=== PATIENT | female | born 1990 | race Caucasian/White ===

== ENCOUNTER 2016-09-02 13:41 | Inpatient (IN) | payer OTHER ==
[2016-09-02] VITALS (8 sets, daily range): BP systolic 115–126; BP diastolic 64–80; PULSE 98–113; RESP 16–20; TEMP 99.8–100.6; O2SAT 98–100
[~2016-09-02] VITALS: Ht 167.6 cm; Wt 77.2 kg
[~2016-09-02 13:41] MED LIST: ACYC-1 PO; AMBI10TA PO; AMOX500T2 PO
--- NOTE | 2016-09-02 14:09 | PD ---
HPI Chief Complaint: GI Complaint Time Seen by Provider: 13:59 Travel History International Travel<30 days: No Contact w/Intl Traveler<30days: No Traveled to known affect area: No History of Present Illness HPI This is a 25-year-old female who presents to the emergency department with 1 week of multiple symptoms. She reports one week ago her mother and ever since then she's had no appetite, hasn't been eating or drinking and is nauseous. She is also been having diffuse mild cramping abdominal discomfort. For 2 days she started to have a sore throat and headache and she feels very weak. Her family member noticed that she's developed a rash on the left side of her neck and she has a rash around her eyes but she's never had before. She does report subjective fevers and chills. She says she is otherwise healthy. She denies any abnormal vaginal discharge and has been sexually active with one partner in the past 6 months. She denies any history of IV drug use. PFSH Past Medical History Hx Anticoagulant Therapy: No Autoimmune Disease: No Blood Disorders: No Cancer: No Cardiovascular Problems: No Chemotherapy: No Cerebrovascular Accident: No Diabetes: No Diminished Hearing: No Endocrine: No Glaucoma: No Genitourinary: No Hepatitis: No Hiatal Hernia: No Hypertension: No Immune Disorder: No Medical other: Yes (MRSA IN PAST) Musculoskeletal: No Neurologic: No Psychiatric: No Reproductive: No Respiratory: No Integumentary: Yes (STATES HX OF MRSA INFESTIONS) Immunizations Current: Yes Sleep Apnea: Yes Thyroid Disease: No Tetanus Vaccination: < 5 Years Influenza Vaccination: Yes ?: Not LMP: ONE WEEK AGO : 0 Para: 0 Miscarriage: 0 : 0 Past Surgical History Abdominal Surgery: No Cardiac Surgery: No Ear Surgery: No Endocrine Surgery: No Eye Surgery: No Genitourinary Surgery: No Gynecologic Surgery: No Hysterectomy: No Oral Surgery: Yes (TONSILLECTOMY) Pacemaker: No Thoracic Surgery: No Tonsillectomy: Yes (12/14/09) Other Surgery: Yes (DEVIATED SEPTUM) Social History Alcohol Use: No Tobacco Use: No Substance Use: No Allergies-Medications (Allergen,Severity, Reaction): Coded Allergies: No Known Allergies (Verified , 09/02/16) Reported Meds & Prescriptions Reported Meds & Active Scripts Active Reported Zovirax 800 Mg Tab (Acyclovir) 800 Mg Tab 800 Mg PO BID Ambien (Zolpidem Tartrate) 10 Mg Tab 10 Mg PO HS Review of Systems Except as stated in HPI: all other systems reviewed are Neg Physical Exam Narrative GENERAL: Unwell-appearing. SKIN: Petechial rash over both eyelids. Patchy erythematous rash over the left neck. HEAD: Atraumatic. Normocephalic. EYES: Pupils equal and round. No injection or drainage. ENT: Moist mucous membranes NECK: Trachea midline. CARDIOVASCULAR: Regular rate and rhythm. No murmur appreciated. RESPIRATORY: Clear to auscultation. Breath sounds equal bilaterally. GASTROINTESTINAL: Abdomen soft, tender to palpation in the right upper and right lower quadrants with no rebound/guarding MUSCULOSKELETAL: No obvious deformities. NEUROLOGICAL: Awake and alert. No obvious cranial nerve deficits. Moving all extremities. PSYCHIATRIC: Appropriate mood and affect; insight and judgment normal. Data Data Last Documented VS Vital Signs Date Time Temp Pulse Resp B/P Pulse Ox O2 Delivery O2 Flow Rate FiO2 09/02/16 16:12 16 09/02/16 14:21 100 Room Air 09/02/16 13:49 98 126/80 09/02/16 13:44 99.8 Orders Electrocardiogram (09/02/16 14:01) Complete Blood Count With Diff (09/02/16 14:01) Comprehensive Metabolic Panel (09/02/16 14:01) Urinalysis - C+S If Indicated (09/02/16 14:01) Chest, Single Ap (09/02/16 14:01) Blood Glucose (09/02/16 14:01) Ecg Monitoring (09/02/16 14:01) Iv Access Insert/Monitor (09/02/16 14:01) Oximetry (09/02/16 14:01) Oxygen Administration (09/02/16 14:01) Group A Rapid Strep Screen (09/02/16 14:01) Lactic Acid (09/02/16 14:01) Sodium Chlor 0.9% 1000 Ml Inj (Ns 1000 M (09/02/16 14:15) Creatine Kinase (Cpk) (09/02/16 14:01) Ondansetron Inj (Zofran Inj) (09/02/16 14:15) Ketorolac Inj (Toradol Inj) (09/02/16 14:15) Prothrombin Time / Inr (Pt) (09/02/16 14:09) Act Partial Throm Time (Ptt) (09/02/16 14:09) Strep Culture (Group A) (09/02/16 14:15) Us Abdomen Gallbladder (09/02/16 ) Piperacil-Tazo 3.375 Gm Premix (Zosyn 3. (09/02/16 16:00) Influenzae A/B Antigen (09/02/16 15:52) Ct Abd/Pel W Iv Contrast(Rout) (09/02/16 ) Ed Urine Pregnancytest Poc (09/02/16 15:52) Labs Laboratory Tests Test 09/02/16 09/02/16 14:00 15:53 White Blood Count 17.7 TH/MM3 Red Blood Count 5.05 MIL/MM3 Hemoglobin 14.9 GM/DL Hematocrit 44.2 % Mean Corpuscular Volume 87.7 FL Mean Corpuscular Hemoglobin 29.4 PG Mean Corpuscular Hemoglobin 33.6 % Concent Red Cell Distribution Width 12.2 % Platelet Count 208 TH/MM3 Mean Platelet Volume 8.0 FL Neutrophils (%) (Auto) 95.7 % Lymphocytes (%) (Auto) 2.0 % Monocytes (%) (Auto) 1.9 % Eosinophils (%) (Auto) 0.1 % Basophils (%) (Auto) 0.3 % Neutrophils # (Auto) 16.9 TH/MM3 Lymphocytes # (Auto) 0.4 TH/MM3 Monocytes # (Auto) 0.3 TH/MM3 Eosinophils # (Auto) 0.0 TH/MM3 Basophils # (Auto) 0.1 TH/MM3 CBC Comment DIFF FINAL Differential Comment Prothrombin Time 12.0 SEC Prothromb Time International 1.1 RATIO Ratio Activated Partial 27.8 SEC Thromboplast Time Sodium Level 137 MEQ/L Potassium Level 3.6 MEQ/L Chloride Level 102 MEQ/L Carbon Dioxide Level 27.3 MEQ/L Anion Gap 8 MEQ/L Blood Urea Nitrogen 9 MG/DL Creatinine 0.95 MG/DL Estimat Glomerular Filtration 71 ML/MIN Rate Random Glucose 117 MG/DL Lactic Acid Level 1.5 mmol/L Calcium Level 9.4 MG/DL Total Bilirubin 2.4 MG/DL Aspartate Amino Transf 15 U/L (AST/SGOT) Alanine Aminotransferase 21 U/L (ALT/SGPT) Alkaline Phosphatase 63 U/L Total Creatine Kinase 103 U/L Total Protein 8.1 GM/DL Albumin 4.7 GM/DL Urine Collection Type CATH Urine Color YELLOW Urine Turbidity CLEAR Urine pH 7.0 Urine Specific [place] 1.009 Urine Protein NEG mg/dL Urine Glucose (UA) NEG mg/dL Urine Ketones 15 mg/dL Urine Occult Blood NEG Urine Nitrite NEG Urine Bilirubin NEG Urine Leukocyte Esterase TRACE Urine WBC 0-2 /hpf Urine Squamous Epithelial 0-5 /hpf Cells Microscopic Urinalysis Comment CULT NOT INDICATED MDM Medical Decision Making Medical Screen Exam Complete: Yes Emergency Medical Condition: Yes Interpretation(s) Temperature is 99.8, tachycardic Leukocytosis 95% neutrophils Total bilirubin is 2.4 Lactic acid is 1.5 CK is 103 Urinalysis is negative for infection Chest x-ray: No acute process Differential Diagnosis Viral syndrome, influenza, strep pharyngitis, pneumonia, urinary tract infection , dermatomyositis, cholecystitis, appendicitis Narrative Course This is a 25-year-old female who presents to the emergency department with multiple nonspecific symptoms including malaise, body aches, rash, abdominal pain and vomiting. She looks unwell and exam and is slightly tachycardic on arrival. She does have a leukocytosis of 17 with a normal lactic acid. She has a total bilirubin of 2.4 which may reflect Gilbert's syndrome, but in the setting of abdominal pain and vomiting at think it's reasonable to obtain an ultrasound of the right upper quadrant to evaluate the gallbladder. CT abdomen and pelvis will also be obtained to rule out appendicitis. Patient was given a dose of IV Zosyn. I think all the patient's symptoms can be explained by a viral syndrome. I think if both of these imaging studies are reassuring patient 's symptoms can be attributed to a viral illness and I think she can be discharged home if her clinical appearance is improved after 2 L of IV fluids that she is otherwise young and healthy. Martine Ruiz MD September 02, 2016 14:09
[2016-09-02] MEDS ORDERED: KETOROLAC TROMETHAMINE 30 MG/ML (IVP) VIAL IV PUSH ONE (14:15)
[2016-09-02] MEDS ORDERED: ONDANSETRON HCL 4 MG/2 ML VIAL IV PUSH ONE (14:15)
[2016-09-02] MEDS ORDERED: SODIUM CHLOR 0.9% 1000 ML INJ 1,000 ML IV ONE ×2 (14:15→17:45)
[2016-09-02 14:21] LABS: AUTOMATED NEUTROPHIL # 16.9 TH/MM3 (1.8-7.7); BASOPHIL # 0.1 TH/MM3 (0-0.2); BASOPHIL % 0.3 % (0.0-2.0); EOSINOPHIL % 0.1 % (0.0-4.0); HEMATOCRIT 44.2 % (35.0-46.0); LYMPHOCYTE # 0.4 TH/MM3 (1.0-4.8); MEAN CELL VOLUME 87.7 FL (80.0-100.0); MEAN CORPUSCULAR HEMOGLOBIN 29.4 PG (27.0-34.0); MEAN CORPUSCULAR HGB CONC 33.6 % (32.0-36.0); MONO % 1.9 % (0.0-8.0); NEUT % 95.7 % (16.0-70.0); PLATELET COUNT 208 TH/MM3 (150-450); RED BLOOD COUNT 5.05 MIL/MM3 (4.00-5.30); RED CELL DISTRIBUTION WIDTH 12.2 % (11.6-17.2); WHITE BLOOD COUNT 17.7 TH/MM3 (4.0-11.0)
[2016-09-02 14:22] LABS: HEMO FLAGS DIFF FINAL
[2016-09-02 14:26] LABS: CHLORIDE 102 MEQ/L (98-107); POTASSIUM 3.6 MEQ/L (3.5-5.1); SODIUM (NA) 137 MEQ/L (136-145)
[2016-09-02 14:30] LABS: ANION GAP 8 MEQ/L (5-15); BICARBONATE 27.3 MEQ/L (21.0-32.0)
[2016-09-02 14:31] LABS: BLOOD UREA NITROGEN 9 MG/DL (7-18)
[2016-09-02 14:32] LABS: APTT (PATIENT) 27.8 SEC (24.3-30.1); INTERNATIONAL NORMALIZED RATIO 1.1 RATIO
[2016-09-02 14:34] LABS: ALT (GPT) 21 U/L (10-53); AST (GOT) 15 U/L (15-37); GLOMERULAR FILTRATION RATE 71 ML/MIN (>89)
[2016-09-02 14:35] LABS: TOTAL BILIRUBIN ADULT 2.4 MG/DL (0.2-1.0)
[2016-09-02 14:36] LABS: CREATINE KINASE 103 U/L (26-192)
[2016-09-02 14:37] LABS: ALKALINE PHOSPHATASE 63 U/L (45-117)
--- NOTE | 2016-09-02 15:14 | RADHPO ---
EXAM DATE/TIME: 09/02/2016 14:23 [facility] COMPARISON: No previous studies available for comparison. INDICATIONS : Short of breath and flu like symptoms MEDICAL HISTORY : None. SURGICAL HISTORY : None. ENCOUNTER: Initial ACUITY: 4 - 6 days PAIN SCORE: 4/10 LOCATION: Bilateral chest FINDINGS: A single view of the chest demonstrates the lungs to be symmetrically aerated without evidence of mas s, infiltrate or effusion. The cardiomediastinal contours are unremarkable. Osseous structures are intact. CONCLUSION: No acute disease. Terrell Ocampo MD on September 02, 2016 at 15:12 Board Certified Radiologist. This report was verified electronically.
[2016-09-02] MEDS ORDERED: PIPERACIL-TAZO 3.375 GM PREMIX 50 ML IV ONE (16:00)
[2016-09-02 16:02] LABS: BLOOD, URINE NEG (NEG); GLUCOSE,URINE NEG (NEG); KETONE, URINE 15 mg/dL (NEG); NITRITE,URINE NEG (NEG)
[2016-09-02 16:11] LABS: METHOD OF COLLECTION CATH; URINE COLOR YELLOW (YELLW/STRAW)
[2016-09-02 16:12] LABS: COMMENT (UR) CULT NOT INDICATED; CULTURE IF INDICATED CULT NOT INDICATED; SQUAMOUS EPITHELIAL CELL URINE 0-5 /hpf (0-5); WBC, URINE 0-2 /hpf (0-5)
--- NOTE | 2016-09-02 17:01 | RADHPO ---
EXAM DATE/TIME: 09/02/2016 15:37 [facility] COMPARISON: No previous studies available for comparison. INDICATIONS : Right upper quadrant pain. MEDICAL HISTORY : Methicillin-resistant Staphylococcus aureus. Sleep apnea. UTI. SURGICAL HISTORY : Tonsillectomy. Deviated septum repair. ENCOUNTER: Initial ACUITY: 1 day PAIN SCORE: 9/10 LOCATION: Right upper quadrant MEASUREMENTS: LIVER: 15.6 cm length COMMON DUCT: 2 mm RIGHT KIDNEY: 10.9 x 5.2 x 3.7 cm FINDINGS: LIVER: Normal echotexture without focal lesion or ductal dilatation. COMMON DUCT: No intraluminal mass or stone visualized. GALLBLADDER: Contains no stones, demonstrates no wall thickening or pericholecystic fluid. PANCREAS: The visualized portions are within normal limits. RIGHT KIDNEY: No evidence of hydronephrosis, stone, or mass. CONCLUSION: Normal examination. Terrell Ocampo MD on September 02, 2016 at 16:59 Board Certified Radiologist. This report was verified electronically.
[2016-09-02] MEDS ORDERED: IOHEXOL 350 MG/ML 10 ML VIAL (for RAD DIAG) IV ONE (17:13)
--- NOTE | 2016-09-02 17:27 | RADHPO ---
EXAM DATE/TIME: 09/02/2016 17:02 [facility] COMPARISON: No previous studies available for comparison. INDICATIONS : Non specific abdominal pain with nausea and vomiting. IV CONTRAST: 90 cc Omnipaque 350 (iohexol) IV ORAL CONTRAST: No oral contrast ingested. RADIATION DOSE: 8.45 CTDIvol (mGy) MEDICAL HISTORY : None SURGICAL HISTORY : None. ENCOUNTER: Initial ACUITY: 1 week PAIN SCALE: 2/10 LOCATION: abdomen TECHNIQUE: Volumetric scanning of the abdomen and pelvis was performed. Using automated exposure control and ad justment of the mA and/or kV according to patient size, radiation dose was kept as low as reasonably achievable to obtain optimal diagnostic quality images. FINDINGS: LOWER LUNGS: The visualized lower lungs are clear. LIVER: Homogeneous density without lesion. There is no dilation of the biliary tree. No calcified gallston es. SPLEEN: Normal size without lesion. PANCREAS: Within normal limits. KIDNEYS: Normal in size and shape. There is no mass, stone or hydronephrosis. ADRENAL GLANDS: Within normal limits. VASCULAR: There is no aortic aneurysm. BOWEL/MESENTERY: No oral contrast was given limiting sensitivity. There are multiple loops of nondilated air-containin g small bowel several air-fluid levels. There is no free air. There is a small amount of fluid in the cul-de-sac. ABDOMINAL WALL: Within normal limits. RETROPERITONEUM: There is no lymphadenopathy. BLADDER: No wall thickening or mass. REPRODUCTIVE: Within normal limits. INGUINAL: There is no lymphadenopathy or hernia. MUSCULOSKELETAL: Within normal limits for patient age. CONCLUSION: 1. Mildly nonspecific, nonobstructive bowel gas pattern which could represent a mild gastroenteritis and/or ileus. 2. Small amount of free fluid in the cul-de-sac which is a nonspecific finding in a female patient of this age and may be physiologic. Ildefonso Mata MD on September 02, 2016 at 17:20 Board Certified Radiologist. This report was verified electronically.
[2016-09-02] MEDS ORDERED: METOCLOPRAMIDE HCL 10 MG/2 ML VIAL IV PUSH ONE (17:45)
--- NOTE | 2016-09-02 17:58 | PD ---
Data Data Last Documented VS Vital Signs Date Time Temp Pulse Resp B/P Pulse Ox O2 Delivery O2 Flow Rate FiO2 09/02/16 16:12 16 09/02/16 14:21 100 Room Air 09/02/16 13:49 98 126/80 09/02/16 13:44 99.8 Orders Electrocardiogram (09/02/16 14:01) Complete Blood Count With Diff (09/02/16 14:01) Comprehensive Metabolic Panel (09/02/16 14:01) Urinalysis - C+S If Indicated (09/02/16 14:01) Chest, Single Ap (09/02/16 14:01) Blood Glucose (09/02/16 14:01) Ecg Monitoring (09/02/16 14:01) Iv Access Insert/Monitor (09/02/16 14:01) Oximetry (09/02/16 14:01) Oxygen Administration (09/02/16 14:01) Group A Rapid Strep Screen (09/02/16 14:01) Lactic Acid (09/02/16 14:01) Sodium Chlor 0.9% 1000 Ml Inj (Ns 1000 M (09/02/16 14:15) Creatine Kinase (Cpk) (09/02/16 14:01) Ondansetron Inj (Zofran Inj) (09/02/16 14:15) Ketorolac Inj (Toradol Inj) (09/02/16 14:15) Prothrombin Time / Inr (Pt) (09/02/16 14:09) Act Partial Throm Time (Ptt) (09/02/16 14:09) Strep Culture (Group A) (09/02/16 14:15) Us Abdomen Gallbladder (09/02/16 ) Piperacil-Tazo 3.375 Gm Premix (Zosyn 3. (09/02/16 16:00) Influenzae A/B Antigen (09/02/16 15:52) Ct Abd/Pel W Iv Contrast(Rout) (09/02/16 ) Ed Urine Pregnancytest Poc (09/02/16 15:52) Blood Culture (09/02/16 16:34) Iohexol 350 Inj (Omnipaque 350 Inj) (09/02/16 17:13) Metoclopramide Inj (Reglan Inj) (09/02/16 17:45) Sodium Chlor 0.9% 1000 Ml Inj (Ns 1000 M (09/02/16 17:45) Admit Order (Ed Use Only) (09/02/16 17:51) Admit To Inpatient (09/02/16 ) Vital Signs (Adult) Q4H (09/02/16 17:52) Activity Oob Ad Nhung (09/02/16 17:52) Small Battery Plate Assembler / Telemetry .CONTINUOUS (09/02/16 17:52) Diet Regular Basic (09/02/16 Dinner) Sodium Chlor 0.9% 1000 Ml Inj (Ns 1000 M (09/02/16 17:52) Sodium Chloride 0.9% Flush (Ns Flush) (09/02/16 18:00) Sodium Chloride 0.9% Flush (Ns Flush) (09/02/16 21:00) Ondansetron Inj (Zofran Inj) (09/02/16 18:00) Comprehensive Metabolic Panel (09/03/16 06:00) Complete Blood Count With Diff (09/03/16 06:00) Enoxaparin Inj (Lovenox Inj) (09/02/16 18:00) Naloxone Inj (Narcan Inj) (09/02/16 18:00) Inpatient Certification (09/02/16 ) Labs Laboratory Tests Test 09/02/16 09/02/16 14:00 15:53 White Blood Count 17.7 TH/MM3 Red Blood Count 5.05 MIL/MM3 Hemoglobin 14.9 GM/DL Hematocrit 44.2 % Mean Corpuscular Volume 87.7 FL Mean Corpuscular Hemoglobin 29.4 PG Mean Corpuscular Hemoglobin 33.6 % Concent Red Cell Distribution Width 12.2 % Platelet Count 208 TH/MM3 Mean Platelet Volume 8.0 FL Neutrophils (%) (Auto) 95.7 % Lymphocytes (%) (Auto) 2.0 % Monocytes (%) (Auto) 1.9 % Eosinophils (%) (Auto) 0.1 % Basophils (%) (Auto) 0.3 % Neutrophils # (Auto) 16.9 TH/MM3 Lymphocytes # (Auto) 0.4 TH/MM3 Monocytes # (Auto) 0.3 TH/MM3 Eosinophils # (Auto) 0.0 TH/MM3 Basophils # (Auto) 0.1 TH/MM3 CBC Comment DIFF FINAL Differential Comment Prothrombin Time 12.0 SEC Prothromb Time International 1.1 RATIO Ratio Activated Partial 27.8 SEC Thromboplast Time Sodium Level 137 MEQ/L Potassium Level 3.6 MEQ/L Chloride Level 102 MEQ/L Carbon Dioxide Level 27.3 MEQ/L Anion Gap 8 MEQ/L Blood Urea Nitrogen 9 MG/DL Creatinine 0.95 MG/DL Estimat Glomerular Filtration 71 ML/MIN Rate Random Glucose 117 MG/DL Lactic Acid Level 1.5 mmol/L Calcium Level 9.4 MG/DL Total Bilirubin 2.4 MG/DL Aspartate Amino Transf 15 U/L (AST/SGOT) Alanine Aminotransferase 21 U/L (ALT/SGPT) Alkaline Phosphatase 63 U/L Total Creatine Kinase 103 U/L Total Protein 8.1 GM/DL Albumin 4.7 GM/DL Urine Collection Type CATH Urine Color YELLOW Urine Turbidity CLEAR Urine pH 7.0 Urine Specific [place] 1.009 Urine Protein NEG mg/dL Urine Glucose (UA) NEG mg/dL Urine Ketones 15 mg/dL Urine Occult Blood NEG Urine Nitrite NEG Urine Bilirubin NEG Urine Leukocyte Esterase TRACE Urine WBC 0-2 /hpf Urine Squamous Epithelial 0-5 /hpf Cells Microscopic Urinalysis Comment CULT NOT INDICATED MDM Supervised Visit with MIRIAM: No Narrative Course Patient was initially evaluated by the previous provider and signed out to me at the beginning my shift pending CT abdomen pelvis, right upper quadrant ultrasound, and disposition. See her note for further details. Briefly this is a 25-year-old female who presents with multiple complaints after her mother this past week. Patient has been having diffuse body aches, headaches, sore throat, fever, nausea, and vomiting with little appetite. She went to her primary care physician today who started her on azithromycin for pharyngitis. The patient has also noted a rash on her right face and right neck. On physical exam the patient is sleeping comfortably. Mucous membranes are dry. She has a petechial rash on the right side of her face/eyelids as well as a blanching/erythematous rash on her right neck. No nuchal rigidity on exam. Abdomen with moderate diffuse tenderness without peritoneal signs. Initial vital signs show heart rate 113, blood pressure 124/76, pulse ox 99% on room air, oral temp of 99.8F. CBC is remarkable for WBC 17.7 with 95% neutrophils. CMP is remarkable for total bili 2.4, otherwise unremarkable. Lactic acid is 1.5. UA shows 15 ketones, trace site esterase, otherwise unremarkable, not suggestive of UTI. Group A strep is negative. Chest x-ray: No acute disease. CT abdomen pelvis: CONCLUSION: 1. Mildly nonspecific, nonobstructive bowel gas pattern which could represent a mild gastroenteritis and/or ileus. 2. Small amount of free fluid in the cul-de-sac which is a nonspecific finding in a female patient of this age and may be physiologic. Right upper quadrant ultrasound: CONCLUSION: Normal examination. On reassessment the patient is continuing to have frontal headache which she describes as pressure, and has been going on for last 5 days. There is no nuchal rigidity on exam. She continues to have abdominal pain and discomfort. She does have some mild to moderate periumbilical tenderness without peritoneal signs. Patient is likely suffering from a viral illness, however given ongoing symptoms, she will be admitted for overnight observation for further treatment and evaluation. Case discussed with hospitalist Dr. Wei who will admit the patient to his service. Diagnosis Primary Impression: Leukocytosis Qualified Code: D72.829 - Leukocytosis, unspecified type Additional Impressions: Malaise Rash Abdominal pain Qualified Code: R10.9 - Abdominal pain, unspecified location Admitting Information Admitting Physician Requests: Observation Marcus Taylor MD September 02, 2016 17:58
--- NOTE | 2016-09-02 17:59 | HHI.HP ---
[facility] Service [facility] Primary Care Physician No Primary Care Physician Admission Diagnosis leukocytosis, vomiting, general malaise, rash Diagnoses: (1) Malaise Diagnosis: Principal (2) Rash Diagnosis: Principal (3) Abdominal pain Diagnosis: Principal (4) Enteritis Diagnosis: Principal (5) Headache Diagnosis: Principal (6) Hyperbilirubinemia Diagnosis: Principal (7) Leukocytosis Diagnosis: Principal (8) Tachycardia Diagnosis: Principal (9) Sepsis Diagnosis: Principal Travel History International Travel<30 Days: No Contact w/Intl Traveler <30 Da: No Traveled to Known Affected Are: No Sepsis Criteria SIRS Criteria (2 or more): Heart rate over 90, WBC > 30201, < 4000 or > 10% bands Sepsis Criteria (SIRS+source): Infect source susp/known History of Present Illness Mrs. Tran is a 25-year-old female. She came into the emergency room secondary to hyperemesis and malaise. She has been dealing with headache and sore throat for about a week. Recently she has started throwing up and having abdominal pain. Imaging shows enteritis. She has hyperbilirubinemia. The presence of tachycardia, fever, leukocytosis, and an infectious source of enteritis meets sepsis criteria. An early secondary bacterial infection is suspected which may have been preceded by a viral syndrome. She also reports petechial rashes above her eyes which was present earlier at her neck. She claims that she has not been able to eat or drink well for about 7 days. Her mother recently and she's been under a lot of stress. Her mother of complications of lung cancer (pneumonia) and her grandfather also had lung cancer. No other positive family history. No other complaints today. Review of Systems Constitutional: COMPLAINS OF: Fatigue, Fever, Chills Endocrine: COMPLAINS OF: Heat/cold intolerance Eyes: DENIES: Blurred vision, Diplopia Ears, nose, mouth, throat: COMPLAINS OF: Nasal discharge, DENIES: Hearing loss , Vertigo Respiratory: COMPLAINS OF: Cough, DENIES: Wheezing, Shortness of breath Cardiovascular: DENIES: Chest pain, Palpitations, Syncope Gastrointestinal: COMPLAINS OF: Abdominal pain, DENIES: Black stools, Bloody stools Genitourinary: DENIES: Abnormal vaginal bleeding Musculoskeletal: COMPLAINS OF: Joint pain, Muscle aches Integumentary: DENIES: Abnormal pigmentation Hematologic/lymphatic: DENIES: Bruising Immunologic/allergic: DENIES: Eczema Neurologic: COMPLAINS OF: Headache, DENIES: Abnormal gait, Paresthesias, Seizures Psychiatric: DENIES: Anxiety, Confusion Past Family Social History Past Medical History None reported Past Surgical History None Reported Medications Reported Meds & Active Scripts Active Reported Zovirax 800 Mg Tab (Acyclovir) 800 Mg Tab 800 Mg PO BID Ambien (Zolpidem Tartrate) 10 Mg Tab 10 Mg PO HS Allergies: Coded Allergies: No Known Allergies (Verified , 09/02/16) Active Ordered Medications Administered Medications Medications (Trade) Dose Ordered Sig/Janay Route PRN Reason Start Time Stop Time Status Last Admin Dose Admin Sodium Chloride (NS 1000 ml Inj) 1,000 ml @ 999 mls/hr BOLUS ONCE IV 09/02/16 17:45 09/02/16 18:45 09/02/16 18:24 Family History Lung cancer and mother Lung cancer in grandfather Social History Patient denies smoking, alcohol abuse, or drug abuse. Physical Exam Vital Signs Vital Signs Date Time Temp Pulse Resp B/P Pulse Ox O2 Delivery O2 Flow Rate FiO2 09/02/16 16:12 16 09/02/16 14:21 100 Room Air 09/02/16 14:21 100 Room Air 09/02/16 13:49 98 20 126/80 99 Room Air 09/02/16 13:44 99.8 113 16 124/76 99 Physical Exam GENERAL: NAD, A&Ox3 SKIN: Warm and dry. Petechial rash on upper eyelids. HEAD: Normocephalic. Pharyngitis. EYES: No scleral icterus. No injection or drainage. NECK: Supple, trachea midline. No JVD or lymphadenopathy. CARDIOVASCULAR: Regular rate and rhythm without murmurs, gallops, or rubs. RESPIRATORY: Breath sounds equal bilaterally. No accessory muscle use. GASTROINTESTINAL: Abdomen soft. Nondistended. Global tenderness with most tenderness of the right lower quadrant. MUSCULOSKELETAL: No cyanosis, or edema. Laboratory Laboratory Tests Test 09/02/16 09/02/16 14:00 15:53 White Blood Count 17.7 Red Blood Count 5.05 Hemoglobin 14.9 Hematocrit 44.2 Mean Corpuscular Volume 87.7 Mean Corpuscular Hemoglobin 29.4 Mean Corpuscular Hemoglobin 33.6 Concent Red Cell Distribution Width 12.2 Platelet Count 208 Mean Platelet Volume 8.0 Neutrophils (%) (Auto) 95.7 Lymphocytes (%) (Auto) 2.0 Monocytes (%) (Auto) 1.9 Eosinophils (%) (Auto) 0.1 Basophils (%) (Auto) 0.3 Neutrophils # (Auto) 16.9 Lymphocytes # (Auto) 0.4 Monocytes # (Auto) 0.3 Eosinophils # (Auto) 0.0 Basophils # (Auto) 0.1 CBC Comment DIFF FINAL Differential Comment Prothrombin Time 12.0 Prothromb Time International 1.1 Ratio Activated Partial 27.8 Thromboplast Time Sodium Level 137 Potassium Level 3.6 Chloride Level 102 Carbon Dioxide Level 27.3 Anion Gap 8 Blood Urea Nitrogen 9 Creatinine 0.95 Estimat Glomerular Filtration 71 Rate Random Glucose 117 Lactic Acid Level 1.5 Calcium Level 9.4 Total Bilirubin 2.4 Aspartate Amino Transf 15 (AST/SGOT) Alanine Aminotransferase 21 (ALT/SGPT) Alkaline Phosphatase 63 Total Creatine Kinase 103 Total Protein 8.1 Albumin 4.7 Urine Collection Type CATH Urine Color YELLOW Urine Turbidity CLEAR Urine pH 7.0 Urine Specific [place] 1.009 Urine Protein NEG Urine Glucose (UA) NEG Urine Ketones 15 Urine Occult Blood NEG Urine Nitrite NEG Urine Bilirubin NEG Urine Leukocyte Esterase TRACE Urine WBC 0-2 Urine Squamous Epithelial 0-5 Cells Microscopic Urinalysis Comment CULT NOT INDICATED Date/Time Procedure Status Source Growth 09/02/16 16:15 Influenza Types A,B Antigen (CHARLES) - Final Complete Nasal Washing NEGATIVE FOR FLU A AND B ANTIGEN.... 09/02/16 14:15 Group A Streptococcus Screen (CHARLES) - Final Complete Throat 09/02/16 14:15 Group A Streptococcus Screen Received Throat Pending 09/02/16 14:08 Aerobic Blood Culture Received Blood Peripheral Pending 09/02/16 14:08 Anaerobic Blood Culture Received Blood Peripheral Pending Result Diagram: 09/02/16 1400 09/02/16 1400 Septic Shock Reassessment Heart: Regular rate and rhythm Lungs: Clear Skin: Warm Peripheral Pulses: Bounding Right Radial Bounding Left Radial Capillary Refill: Brisk Assessment and Plan Problem List: (1) Enteritis ICD Code: K52.9 Status: Acute (2) Headache ICD Code: R51 Status: Acute (3) Hyperbilirubinemia ICD Code: E80.6 Status: Acute (4) Leukocytosis ICD Code: D72.829 Status: Acute (5) Tachycardia ICD Code: R00.0 Status: Acute (6) Sepsis ICD Code: A41.9 Status: Acute Assessment and Plan Assessment and plan 25-year-old female with enteritis who is meeting sepsis criteria. Enteritis Sepsis Hyperbilirubinemia Hyperemesis Evaluate for C. difficile Follow on telemetry Follow bilirubin level Flagyl (change to by mouth his C. difficile is present) Levaquin IV hydration Headache When necessary IV morphine Bilateral eyelid petechia May represent systemic inflammation May represent progressive vomiting Follow for now Treatment for infection as above Global weakness Likely secondary to infection Treatment infection as above next Acute grief Supportive care DVT prophylaxis Lovenox Physician Certification 2 Midnight Certification Type: Admission for Inpatient Services Order for Inpatient Services The services are ordered in accordance with Medicare regulations or non- Medicare payer requirements, as applicable. In the case of services not specified as inpatient-only, they are appropriately provided as inpatient services in accordance with the 2-midnight benchmark. Estimated LOS (days): 2 days is the estimated time the patient will need to remain in the hospital, assuming treatment plan goals are met and no additional complications. Post-Hospital Plan: Home Problem Qualifiers (1) Abdominal pain: Qualified Code: R10.9 - Abdominal pain, unspecified location Flip Wei MD September 02, 2016 5:59 pm
[2016-09-02] MEDS ORDERED: SODIUM CHLORIDE 0.9% FLUSH 10 ML FLUSH IV FLUSH PRN (18:00)
[2016-09-02] MEDS ORDERED: ONDANSETRON HCL 4 MG/2 ML VIAL IVP PRN (18:00)
[2016-09-02] MEDS ORDERED: NALOXONE HCL 0.4 MG/ML AMP IV PRN (18:00)
[2016-09-02] MEDS: SODIUM CHLOR 0.9% 1000 ML INJ 1,000 ML IV SCH (19:25)
[2016-09-02] MEDS ORDERED: ENOXAPARIN SODIUM 40 MG/0.4 ML SYRINGE SQ SCH (20:00)
[2016-09-02] MEDS: SODIUM CHLORIDE 0.9% FLUSH 10 ML FLUSH IV FLUSH SCH (21:40)
[2016-09-02] MEDS ORDERED: ACETAMINOPHEN/HYDROcodone 325 MG/5 MG TAB PO ONE (22:45)
[2016-09-02] MEDS ORDERED: ACETAMINOPHEN 500 MG CPLT PO PRN (22:45)
[2016-09-03] VITALS: BP 109/58; PULSE 90; RESP 18; TEMP 99.6; O2SAT 99
[2016-09-03] MEDS: SODIUM CHLOR 0.9% 1000 ML INJ 1,000 ML IV SCH ×2 (02:19→09:27)
[2016-09-03 04:00] VITALS: BP 105/58; PULSE 90; RESP 18; TEMP 99.1; O2SAT 98
[2016-09-03 07:25] LABS: AUTOMATED NEUTROPHIL # 10.4 TH/MM3 (1.8-7.7); BASOPHIL % 0.2 % (0.0-2.0); EOSINOPHIL # 0.1 TH/MM3 (0-0.4); EOSINOPHIL % 0.8 % (0.0-4.0); HEMATOCRIT 36.9 % (35.0-46.0); LYMPH % 7.4 % (9.0-44.0); LYMPHOCYTE # 0.9 TH/MM3 (1.0-4.8); MEAN CELL VOLUME 89.7 FL (80.0-100.0); MEAN CORPUSCULAR HGB CONC 33.5 % (32.0-36.0); MONO % 6.1 % (0.0-8.0); NEUT % 85.5 % (16.0-70.0); PLATELET COUNT 176 TH/MM3 (150-450); RED BLOOD COUNT 4.11 MIL/MM3 (4.00-5.30); RED CELL DISTRIBUTION WIDTH 12.3 % (11.6-17.2); WHITE BLOOD COUNT 12.1 TH/MM3 (4.0-11.0)
[2016-09-03 07:29] LABS: CHLORIDE 108 MEQ/L (98-107); POTASSIUM 3.7 MEQ/L (3.5-5.1); SODIUM (NA) 142 MEQ/L (136-145)
[2016-09-03 07:31] LABS: HEMO FLAGS DIFF FINAL
[2016-09-03 07:43] LABS: ALKALINE PHOSPHATASE 44 U/L (45-117); ALT (GPT) 15 U/L (10-53); ANION GAP 8 MEQ/L (5-15); AST (GOT) 11 U/L (15-37); BICARBONATE 25.6 MEQ/L (21.0-32.0); BLOOD UREA NITROGEN 5 MG/DL (7-18); GLOMERULAR FILTRATION RATE 101 ML/MIN (>89)
[2016-09-03 08:00] VITALS: BP 97/89; PULSE 84; RESP 16; TEMP 97.8; O2SAT 99
[2016-09-03] MEDS: SODIUM CHLORIDE 0.9% FLUSH 10 ML FLUSH IV FLUSH SCH (09:00)
[2016-09-03] MEDS ORDERED: METR-1 PO (10:12)
[2016-09-03] MEDS ORDERED: LACT PO (10:12)
[2016-09-03] MEDS ORDERED: CIPR-9 PO (10:12)
[2016-09-03] MEDS ORDERED: CIPROFLOXACIN 500 MG TAB PO SCH (10:15)
[2016-09-03] MEDS ORDERED: PIPERACIL-TAZO 3.375 GM PREMIX 50 ML IV SCH (10:15)
--- NOTE | 2016-09-03 12:42 | HHI.DS ---
Discharge Summary Admission Date September 02, 2016 at 17:54 Discharge Date: September 03, 2016 Admitting Diagnosis leukocytosis, vomiting, general malaise, rash (1) Malaise ICD Code: R53.81 Diagnosis: Principal (2) Rash ICD Code: R21 Diagnosis: Principal (3) Abdominal pain ICD Code: R10.9 Diagnosis: Principal (4) Enteritis ICD Code: K52.9 Diagnosis: Principal (5) Headache ICD Code: R51 Diagnosis: Principal (6) Hyperbilirubinemia ICD Code: E80.6 Diagnosis: Principal (7) Leukocytosis ICD Code: D72.829 Diagnosis: Principal (8) Tachycardia ICD Code: R00.0 Diagnosis: Principal (9) Sepsis ICD Code: A41.9 Diagnosis: Principal Procedures None Brief History - From Admission Mrs. Tran is a 25-year-old female. She came into the emergency room secondary to hyperemesis and malaise. She has been dealing with headache and sore throat for about a week. Recently she has started throwing up and having abdominal pain. Imaging shows enteritis. She has hyperbilirubinemia. The presence of tachycardia, fever, leukocytosis, and an infectious source of enteritis meets sepsis criteria. An early secondary bacterial infection is suspected which may have been preceded by a viral syndrome. She also reports petechial rashes above her eyes which was present earlier at her neck. She claims that she has not been able to eat or drink well for about 7 days. Her mother recently and she's been under a lot of stress. Her mother of complications of lung cancer (pneumonia) and her grandfather also had lung cancer. No other positive family history. No other complaints today. CBC/BMP: 09/03/16 0545 09/03/16 0545 Significant Findings Laboratory Tests Test 09/02/16 09/02/16 09/03/16 14:00 15:53 05:45 White Blood Count 17.7 TH/MM3 12.1 TH/MM3 (4.0-11.0) (4.0-11.0) Neutrophils (%) (Auto) 95.7 % 85.5 % (16.0-70.0) (16.0-70.0) Lymphocytes (%) (Auto) 2.0 % 7.4 % (9.0-44.0) (9.0-44.0) Neutrophils # (Auto) 16.9 TH/MM3 10.4 TH/MM3 (1.8-7.7) (1.8-7.7) Lymphocytes # (Auto) 0.4 TH/MM3 0.9 TH/MM3 (1.0-4.8) (1.0-4.8) Prothrombin Time 12.0 SEC (9.8-11.6) Estimat Glomerular Filtration 71 ML/MIN (>89) Rate Random Glucose 117 MG/DL (74-106) Total Bilirubin 2.4 MG/DL (0.2-1.0) Urine Ketones 15 mg/dL (NEG) Urine Leukocyte Esterase TRACE (NEG) Chloride Level 108 MEQ/L (98-107) Blood Urea Nitrogen 5 MG/DL (7-18) Calcium Level 8.0 MG/DL (8.5-10.1) Aspartate Amino Transf 11 U/L (15-37) (AST/SGOT) Alkaline Phosphatase 44 U/L (45-117) Total Protein 5.9 GM/DL (6.4-8.2) Albumin 3.1 GM/DL (3.4-5.0) Imaging Last Impressions Chest X-Ray 09/02/16 1401 Signed Impressions: Service Date/Time: Friday, September 02, 2016 14:23 - CONCLUSION: No acute disease. Terrell Ocampo MD Gall Bladder Ultrasound 09/02/16 0000 Signed Impressions: Service Date/Time: Friday, September 02, 2016 15:37 - CONCLUSION: Normal examination. Terrell Ocampo MD Abdomen/Pelvis CT 09/02/16 0000 Signed Impressions: Service Date/Time: Friday, September 02, 2016 17:02 - CONCLUSION: 1. Mildly nonspecific, nonobstructive bowel gas pattern which could represent a mild gastroenteritis and/or ileus. 2. Small amount of free fluid in the cul-de-sac which is a nonspecific finding in a female patient of this age and may be physiologic. Ildefonso Mata MD Hospital Course Mrs. Tran is a 25 year old female. She was admitted to the hospital secondary to enteritis with evidence of sepsis. Zosyn was provided and today she is changed to Flagyl and ciprofloxacin. Overnight she has had resolution of her fevers, cessation of her tachycardia, a rapidly declining white blood cell count, and resolution of her hyperbilirubinemia. Nausea and vomiting are no longer present. She is tolerating by mouth intake. She requests discharge to home. As she is no longer septic and improving rapidly on antibiotics she is medically stable for discharge with continuation of oral antibiotic for 5 days. Will be treated with ciprofloxacin and Flagyl as an outpatient. Pt Condition on Discharge: Stable Discharge Disposition: Discharge Home Discharge Time: <= 30 minutes Discharge Instructions DIET: Follow Instructions for: As Tolerated, No Restrictions Activities you can perform: Regular-No Restrictions Follow up Referrals: PCP Follow-up - 1 Week New Medications: Ciprofloxacin (Cipro) 500 Mg Tab 500 MG PO Q12HR Enteritis #10 TAB Lactobacillus Acidophilus (Acidophilus/l-Sporogenes) 1 Tab Tab 1 TAB PO TID GI Protection #30 TAB Metronidazole (Flagyl) 500 Mg Tab 500 MG PO Q8HR Enteritis #15 TAB Flip Wei MD September 03, 2016 12:42
[2016-09-03] MEDS ORDERED: LACTOBACILLUS ACIDOPHILUS TAB PO SCH (13:00)
[2016-09-03] MEDS ORDERED: metroNIDAZOLE 500 MG TAB PO SCH (14:00)
--- NOTE | 2016-09-03 15:10 | EKG ---
Date Performed: 09/02/2016 Time Performed: 14:09:08 PTAGE: 25 years EKG: Sinus tachycardia Inferior ST-T changes may be normal for age Borderline ECG Compared to pr ior tracing no significant change PREVIOUS TRACING : 12/07/2011 05.51 DOCTOR: Julio Hoyt Interpretating Date/Time 09/03/2016 15:09:36
== END 2016-09-03 12:09 | disposition home or self-care (01) | DRG 872 ==
LOC: PHED 13:41 → PHEDA 17:54 → PH3A 21:11
PROVIDERS: ADMIT Hospitalist; ATTEND Hospitalist
DX: A41.9 Sepsis, unspecified organism (principal); K52.9 Noninfective gastroenteritis and colitis, unspecified; R21 Rash and other nonspecific skin eruption; R51 Headache; R00.0 Tachycardia, unspecified; E80.6 Other disorders of bilirubin metabolism
CPT/HCPCS: 71010; 74177; 76705; 80053; 81001; 82550; 83605; 84703; 85025; 85610; 85730; 87040; 87081; 87641; 87804; 87880; 93005; 96361; 96365; 96375; J1650; J1885; J2405; J2543; J2765; J7030; Q9967

== ENCOUNTER 2017-04-21 21:48 | Emergency (ER) | payer OTHER ==
[~2017-04-21] VITALS: Ht 170.2 cm; Wt 71.8 kg
[~2017-04-21 21:48] MED LIST changes: +CIPR-9 PO; +LACT PO; +METR-1 PO
[2017-04-21 21:51] VITALS: BP 144/85; PULSE 122; RESP 16; TEMP 98.6; O2SAT 98
[2017-04-21] MEDS ORDERED: AMBI5TAB PO (22:05)
[2017-04-21] MEDS ORDERED: SODIUM CHLOR 0.9% 1000 ML INJ 1,000 ML IV SCH (22:06)
[2017-04-21 22:09] VITALS: O2SAT 98
[2017-04-21] MEDS ORDERED: MORPHINE SULFATE 4 MG/ML INJ IV PUSH ONE (22:15)
[2017-04-21] MEDS ORDERED: ONDANSETRON HCL 4 MG/2 ML VIAL IVP ONE (22:15)
[2017-04-21] MEDS ORDERED: SODIUM CHLORIDE 0.9% FLUSH 10 ML FLUSH IV FLUSH PRN (22:15)
[2017-04-21 22:45] LABS: AUTOMATED NEUTROPHIL # 12.3 TH/MM3 (1.8-7.7); BASOPHIL # 0.1 TH/MM3 (0-0.2); BASOPHIL % 0.4 % (0.0-2.0); EOSINOPHIL # 0.1 TH/MM3 (0-0.4); HEMATOCRIT 42.5 % (35.0-46.0); HEMOGLOBIN 14.1 GM/DL (11.6-15.3); LYMPH % 4.8 % (9.0-44.0); LYMPHOCYTE # 0.6 TH/MM3 (1.0-4.8); MEAN CELL VOLUME 86.8 FL (80.0-100.0); MEAN CORPUSCULAR HEMOGLOBIN 28.8 PG (27.0-34.0); MEAN CORPUSCULAR HGB CONC 33.2 % (32.0-36.0); MEAN PLATELET VOLUME 7.7 FL (7.0-11.0); MONO % 2.1 % (0.0-8.0); MONOCYTE # 0.3 TH/MM3 (0-0.9); NEUT % 91.7 % (16.0-70.0); PLATELET COUNT 200 TH/MM3 (150-450); RED CELL DISTRIBUTION WIDTH 11.9 % (11.6-17.2); WHITE BLOOD COUNT 13.4 TH/MM3 (4.0-11.0)
[2017-04-21 22:48] LABS: BILIRUBIN, URINE NEG (NEG); BLOOD, URINE NEG (NEG); GLUCOSE,URINE NEG (NEG); KETONE, URINE NEG (NEG); NITRITE,URINE NEG (NEG); URINE LEUKOCYTE ESTERASE NEG (NEG)
[2017-04-21] MEDS ORDERED: MORPHINE SULFATE 2 MG/ML INJ IV PUSH ONE (22:55)
[2017-04-21 22:59] LABS: URINE COLOR YELLOW (YELLW/STRAW)
[2017-04-21 23:00] LABS: RBC, URINE 0-3 /hpf (0-3); SQUAMOUS EPITHELIAL CELL URINE 0-5 /hpf (0-5); WBC, URINE 0-2 /hpf (0-5)
[2017-04-21 23:02] LABS: CREATININE 0.9 MG/DL (0.50-1.00)
[2017-04-21 23:11] LABS: INTERNATIONAL NORMALIZED RATIO 1.1 RATIO; PROTHROMBIN TIME - PATIENT 11.1 SEC (9.8-11.6)
[2017-04-21] MEDS ORDERED: IOHEXOL 350 MG/ML 10 ML VIAL (for RAD DIAG) IVCONTRAST ONE (23:46)
[2017-04-22] LABS: BICARBONATE 24.3 MEQ/L (21.0-32.0); CALCIUM 9.3 MG/DL (8.5-10.1)
[2017-04-22 00:04] LABS: ALBUMIN 4.5 GM/DL (3.4-5.0); DIRECT BILIRUBIN ADULT 0.2 MG/DL (0.0-0.2)
[2017-04-22 00:06] LABS: INDIRECT BILIRUBIN 1.1 MG/DL (0.0-0.8); TOTAL BILIRUBIN ADULT 1.3 MG/DL (0.2-1.0); TOTAL PROTEIN 7.9 GM/DL (6.4-8.2)
--- NOTE | 2017-04-22 00:07 | RADRPT ---
EXAM DATE/TIME: 04/21/2017 23:31 [place] COMPARISON: CT ABDOMEN & PELVIS W CONTRAST, September 02, 2016, 17:02. INDICATIONS : Right upper quadrant pain. Nausea. IV CONTRAST: 75 cc Omnipaque 350 (iohexol) IV ORAL CONTRAST: No oral contrast ingested. RADIATION DOSE: 8.10 CTDIvol (mGy) MEDICAL HISTORY : None SURGICAL HISTORY : None. ENCOUNTER: Initial ACUITY: 1 day PAIN SCALE: 8/10 LOCATION: Right upper quadrant TECHNIQUE: Volumetric scanning of the abdomen and pelvis was performed. Using automated exposure control and ad justment of the mA and/or kV according to patient size, radiation dose was kept as low as reasonably achievable to obtain optimal diagnostic quality images. DICOM format image data is available electro nically for review and comparison. FINDINGS: The liver and spleen are free of focal defects. The gallbladder and pancreas demonstrate no abnormali ty. The adrenal glands are normal. The kidneys demonstrate no evidence of solid renal mass or hydrone phrosis. No free fluid or abdominal masses are identified. No para-aortic adenopathy is seen. Examination of the pelvis demonstrates no evidence of free fluid or pelvic mass. No abnormally enlarg ed inguinal or retroperitoneal lymph nodes are present. The bladder is unremarkable. 2 cm right ovari an cyst is present. CONCLUSION: 1. No evidence of acute abdominal or pelvic process. No masses are identified. Hugh Barnhart MD on April 22, 2017 at 0:02 Board Certified Radiologist. This report was verified electronically.
[2017-04-22] MEDS ORDERED: SODIUM CHLOR 0.9% 1000 ML INJ 1,000 ML IV ONE (00:30)
[2017-04-22] MEDS ORDERED: KETOROLAC TROMETHAMINE 30 MG/ML (IVP) VIAL IV PUSH ONE (00:30)
[2017-04-22] MEDS ORDERED: OSEL75 PO (01:26)
[2017-04-22] MEDS ORDERED: ZOFR4TAB3 SL (01:26)
--- NOTE | 2017-04-22 01:27 | PD ---
HPI Chief Complaint: GI Complaint Time Seen by Provider: 22:00 Travel History International Travel<30 days: No Contact w/Intl Traveler<30days: No Traveled to known affect area: No History of Present Illness HPI Patient is a 26-year-old female who comes in complaining of right upper quadrant abdominal pain. She says it started last night, and seems to be coming in waves. She says that she was fine today until a few hours ago when she started to feel severe chills, nausea and vomiting. She says she also has had a sore throat. Take anything at home for her symptoms. She says she is worried because she was here several months ago with similar symptoms and was admitted with sepsis. She denies cough or shortness of breath. She denies any urinary symptoms. PFSH Past Medical History Hx Anticoagulant Therapy: No Arthritis: Yes (BILAT. KNEES.) Asthma: No Autoimmune Disease: No Blood Disorders: No Anxiety: No Depression: No Cancer: No Cardiovascular Problems: No Chemotherapy: No COPD: No Cerebrovascular Accident: No Diabetes: No Diminished Hearing: No Endocrine: No Gastrointestinal Disorders: No GERD: No Glaucoma: No Genitourinary: No Headaches: Yes Hepatitis: No Hiatal Hernia: No Heparin Induced Thrombocytopen: No Hypertension: No Immune Disorder: No Implanted Vascular Access Dvce: No Kidney Stones: No Medical other: Yes (MRSA IN PAST) Musculoskeletal: Yes Neurologic: Yes Psychiatric: No Reproductive: No Respiratory: Yes (FREQUENT RESP. INFECTIONS.) Integumentary: Yes (STATES HX OF MRSA INFESTIONS) Immunizations Current: Yes Migraines: Yes Radiation Therapy: No Renal Failure: No Sickle Cell Disease: No Sleep Apnea: No Thyroid Disease: No Ulcer: No ?: Not LMP: 04/20/2017 : 0 Para: 0 Miscarriage: 0 : 0 Past Surgical History Abdominal Surgery: No Cardiac Surgery: No Ear Surgery: No Endocrine Surgery: No Eye Surgery: No Genitourinary Surgery: No Gynecologic Surgery: No Hysterectomy: No Neurologic Surgery: No Oral Surgery: Yes (TONSILLECTOMY) Pacemaker: No Thoracic Surgery: No Tonsillectomy: Yes (12/14/09) Other Surgery: Yes (DEVIATED SEPTUM) Social History Alcohol Use: No Tobacco Use: No Substance Use: No Allergies-Medications (Allergen,Severity, Reaction): Coded Allergies: *MDRO Multi-Drug Resistant Organism (Verified Adverse Reaction, Unknown, ) 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 Reported Meds & Prescriptions Reported Meds & Active Scripts Active Reported Ambien (Zolpidem Tartrate) 5 Mg Tab 5 Mg PO HS PRN Review of Systems Except as stated in HPI: all other systems reviewed are Neg General / Constitutional: Positive: Chills, No: Fever HENT: Positive: Sore Throat, No: Headaches, Lightheadedness Cardiovascular: No: Chest Pain or Discomfort Respiratory: No: Cough, Shortness of Breath Gastrointestinal: Positive: Nausea, Vomiting, Abdominal Pain Genitourinary: No: Dysuria Musculoskeletal: Positive: Myalgias Skin: No Rash, No Change in Pigmentation Neurologic: No: Weakness, Dizziness Physical Exam Narrative GENERAL: Awake and alert, in no acute distress. SKIN: Focused skin assessment warm/dry. No rash or signs of infection. HEAD: Atraumatic. Normocephalic. EYES: Pupils equal and round. No scleral icterus. Extraocular movements intact. ENT: No tonsillar swelling or exudates. Mucous membranes pink and moist. NECK: Trachea midline. No JVD. CARDIOVASCULAR: Regular rate and rhythm. No murmur appreciated. RESPIRATORY: No accessory muscle use. Clear to auscultation. Breath sounds equal bilaterally. GASTROINTESTINAL: Abdomen soft, nondistended. Tender to palpation of the right side of the abdomen. No rebound or guarding. MUSCULOSKELETAL: No obvious deformities. No clubbing. No cyanosis. No edema. NEUROLOGICAL: Awake and alert. No obvious cranial nerve deficits. Motor grossly within normal limits. Normal speech. PSYCHIATRIC: Appropriate mood and affect; insight and judgment normal. Data Data Last Documented VS Vital Signs Date Time Temp Pulse Resp B/P (MAP) Pulse Ox O2 Delivery O2 Flow Rate FiO2 04/21/17 22:09 98 Room Air 04/21/17 21:51 98.6 122 16 144/85 (104) Orders Orders Basic Metabolic Panel (Bmp) (04/21/17 22:06) Complete Blood Count With Diff (04/21/17 22:06) Lipase (04/21/17 22:06) Lactic Acid (04/21/17 22:06) Prothrombin Time / Inr (Pt) (04/21/17 22:06) Act Partial Throm Time (Ptt) (04/21/17 22:06) Urinalysis - C+S If Indicated (04/21/17 22:06) Ct Abd/Pel W Iv Contrast(Rout) (04/21/17 22:06) Iv Access Insert/Monitor (04/21/17 22:06) Ecg Monitoring (04/21/17 22:06) Oximetry (04/21/17 22:06) Morphine Inj (Morphine Inj) (04/21/17 22:15) Ondansetron Inj (Zofran Inj) (04/21/17 22:15) Sodium Chlor 0.9% 1000 Ml Inj (Ns 1000 M (04/21/17 22:06) Sodium Chloride 0.9% Flush (Ns Flush) (04/21/17 22:15) Ed Urine Pregnancytest Poc (04/21/17 22:06) Hepatic Functional Panel (04/21/17 22:10) Morphine Inj (Morphine Inj) (04/21/17 22:55) Iohexol 350 Inj (Omnipaque 350 Inj) (04/21/17 23:46) Influenzae A/B Antigen (04/22/17 00:28) Group A Rapid Strep Screen (04/22/17 00:28) Sodium Chlor 0.9% 1000 Ml Inj (Ns 1000 M (04/22/17 00:30) Ketorolac Inj (Toradol Inj) (04/22/17 00:30) Strep Culture (Group A) (04/22/17 00:45) Labs Laboratory Tests Test 04/21/17 22:27 White Blood Count 13.4 TH/MM3 Red Blood Count 4.90 MIL/MM3 Hemoglobin 14.1 GM/DL Hematocrit 42.5 % Mean Corpuscular Volume 86.8 FL Mean Corpuscular Hemoglobin 28.8 PG Mean Corpuscular Hemoglobin Concent 33.2 % Red Cell Distribution Width 11.9 % Platelet Count 200 TH/MM3 Mean Platelet Volume 7.7 FL Neutrophils (%) (Auto) 91.7 % Lymphocytes (%) (Auto) 4.8 % Monocytes (%) (Auto) 2.1 % Eosinophils (%) (Auto) 1.0 % Basophils (%) (Auto) 0.4 % Neutrophils # (Auto) 12.3 TH/MM3 Lymphocytes # (Auto) 0.6 TH/MM3 Monocytes # (Auto) 0.3 TH/MM3 Eosinophils # (Auto) 0.1 TH/MM3 Basophils # (Auto) 0.1 TH/MM3 CBC Comment DIFF FINAL Differential Comment Prothrombin Time 11.1 SEC Prothromb Time International Ratio 1.1 RATIO Activated Partial Thromboplast Time 26.1 SEC Urine Color YELLOW Urine Turbidity CLEAR Urine pH 7.0 Urine Specific [place] 1.011 Urine Protein NEG mg/dL Urine Glucose (UA) NEG mg/dL Urine Ketones NEG mg/dL Urine Occult Blood NEG Urine Nitrite NEG Urine Bilirubin NEG Urine Leukocyte Esterase NEG Urine RBC 0-3 /hpf Urine WBC 0-2 /hpf Urine Squamous Epithelial Cells 0-5 /hpf Microscopic Urinalysis Comment CULT NOT INDICATED Blood Urea Nitrogen 15 MG/DL Creatinine 0.90 MG/DL Random Glucose 95 MG/DL Calcium Level 9.3 MG/DL Sodium Level 137 MEQ/L Potassium Level 3.6 MEQ/L Chloride Level 101 MEQ/L Carbon Dioxide Level 24.3 MEQ/L Anion Gap 12 MEQ/L Estimat Glomerular Filtration Rate 75 ML/MIN Lactic Acid Level 0.9 mmol/L Total Bilirubin 1.3 MG/DL Direct Bilirubin 0.2 MG/DL Indirect Bilirubin 1.1 MG/DL Aspartate Amino Transf (AST/SGOT) 16 U/L Alanine Aminotransferase (ALT/SGPT) 19 U/L Alkaline Phosphatase 72 U/L Total Protein 7.9 GM/DL Albumin 4.5 GM/DL Lipase 139 U/L [facility] Medical Decision Making Medical Screen Exam Complete: Yes Emergency Medical Condition: Yes Medical Record Reviewed: Yes Differential Diagnosis Cholecystitis versus cholelithiasis versus pancreatitis versus appendicitis versus influenza versus strep pharyngitis Narrative Course Patient is a 26-year-old female who comes in complaining of sore throat, abdominal pain, chills. Exam shows tenderness to the right side of the abdomen. IV established, labs sent. Labs show no elevated white blood cell count of 13. There are no other acute abnormalities. Influenza swab is positive for influenza A. CT abdomen and pelvis performed shows no acute abnormalities. There is a right- sided ovarian cyst, patient informed of this, and advised follow-up with [employer]. Given IV fluids, morphine, Zofran. She reports still feeling badly. Given additional IV fluids, Toradol. Patient states she is feeling more relaxed. She'll be discharged with prescriptions for Tamiflu and Zofran. Advised to drink plenty of fluids. Advised to take Tylenol or ibuprofen as needed for pain or fever. Advised follow-up with a primary care doctor. Advised to return to the ED as needed for any worsening symptoms. Diagnosis Primary Impression: Abdominal pain Qualified Codes: R10.11 - Right upper quadrant pain Additional Impression: Influenza A Patient Instructions: Abdominal Pain (ED), General Instructions, Influenza (ED) Additional Instructions: Drink plenty of fluids. Take Tylenol or ibuprofen as needed for pain. Take Zofran for nausea. Follow-up with a primary care doctor. He did have an ovarian cyst on the right seen on her CAT scan today, this is normal in females get her period, but you should follow-up with gynecology in the future to make sure it has gone away. Return to the ED as needed for any worsening symptoms. Scripts Ondansetron Odt (Zofran Odt) 4 Mg Tab 4 MG SL Q6HR Y for Nausea/Vomiting, #12 TAB 0 Refills Prov: Hallie Mccray MD 04/22/17 Oseltamivir (Tamiflu) 75 Mg Cap 75 MG PO BID for Mgmt Viral Infection for 5 Days, #10 CAP 0 Refills Prov: Hallie Mccray MD 04/22/17 Disposition: 01 DISCHARGE HOME Condition: Stable Hallie Mccray MD Apr 22, 2017 01:27
[2017-04-22 01:38] VITALS: BP 97/54; TEMP 98.8
== END 2017-04-22 01:50 | disposition home or self-care (01) ==
LOC: PHED 21:48
DX: J10.1 Influenza due to other identified influenza virus with other respiratory manifestations (principal); R10.11 Right upper quadrant pain
CPT/HCPCS: 74177; 80048; 80076; 81001; 83605; 83690; 84703; 85025; 85610; 85730; 87081; 87804; 87880; 96361; 96374; 96375; 96376; 99285; J1885; J2270; J2405; J7030; Q9967